=== PATIENT | male | born 1995 | race African-American/Black ===

== ENCOUNTER 2020-06-25 14:11 | Emergency (ER) | payer OTHER ==
[~2020-06-25] VITALS: Ht 152.4 cm; Wt 56.7 kg
[2020-06-25 14:27] VITALS: BP 136/78
--- NOTE | 2020-06-25 15:09 | NUR ---
Medically Cleared by ER Provider. For discharge in [employer] custody
== END 2020-06-25 15:09 | disposition home or self-care (01) ==
LOC: ER 14:14
DX: Z02.89 Encounter for other administrative examinations (principal)